=== PATIENT | female | born 1965 | race Caucasian/White ===

== ENCOUNTER 2022-01-18 13:08 | Emergency (ER) | payer MEDICAID ==
[~2022-01-18] VITALS: Ht 165.1 cm; Wt 63.6 kg
[~2022-01-18 13:08] MED LIST: ASPI-1264 PO
[2022-01-18 14:23] LABS: URINE HCG NEGATIVE (NEG)
[2022-01-18 14:26] LABS: CLARITY,URINE SLIGHTLY CLOUDY (Clear); COLOR,URINE YELLOW (Yellow); GLUCOSE, URINE NEGATIVE (Neg); KETONES,URINE NEGATIVE (Neg); LEUKOCYTE ESTERASE ,URINE SMALL (Neg); NITRITES, URINE NEGATIVE (Neg); OCCULT BLOOD,URINE SMALL (Neg); PH,URINE 5.5 (4.8-8.0); PROTEIN,URINE NEGATIVE (Neg); UROBILINOGEN,URINE 0.2 E.U/dL (0.2-1.0)
[2022-01-18 14:26] LABS: BASOPHILS # (AUTO) 0.1 X10'3 (0-0.2); BASOPHILS % (AUTO) 0.6 % (0-1); EOSINOPHILS # (AUTO) 0.1 X10'3 (0-0.9); EOSINOPHILS % (AUTO) 1.4 % (0-6); HEMATOCRIT 44.1 % (35.0-45.0); HEMOGLOBIN 15.3 g/dl (12.0-16.0); LYMPHOCYTES # (AUTO) 2.3 X10'3 (1.1-4.8); MEAN CORPUSCULAR HEMOGLOBIN 30.2 PG (27.0-31.0); MEAN CORPUSCULAR HGB CONC 34.6 g/dL (33.0-36.5); MEAN CORPUSCULAR VOLUME 87.3 FL (78-98); MEAN PLATELET VOLUME 9.1 FL (7.4-10.4); MONOCYTES # (AUTO) 0.6 X10'3 (0-0.9); MONOCYTES % (AUTO) 5.4 % (2-12); NEUTROPHILS # (AUTO) 7.3 X10'3 (1.8-7.7); NEUTROPHILS % (AUTO) 70.6 % (42-75); PLATELET COUNT 259 X10'3 (140-440); RED BLOOD COUNT 5.06 X10'6 (4.20-5.60); RED CELL DISTRIBUTION WIDTH 12.3 % (11.5-14.5); WHITE BLOOD COUNT 10.3 X10'3 (4.5-11.0)
[2022-01-18 14:30] LABS: UA COLLECTION TYPE CLN CATCH MIDSTREAM
[2022-01-18 14:30] LABS: ALANINE AMINOTRANSFERASE 35 U/L (12-78); ALBUMIN 4.2 G/DL (3.4-5.0); ALBUMIN/GLOBULIN RATIO 1.2 (1.1-1.5); ALKALINE PHOSPHATASE 65 IU/L (46-116); ANION GAP 8 (8-16); ASPARTATE AMINO TRANSFERASE 22 U/L (10-37); BILIRUBIN,TOTAL 1.4 MG/DL (0.1-1.0); BLOOD UREA NITROGEN 13 MG/DL (7-18); BUN/CREATININE RATIO 12.1 (6.6-38.0); CALCIUM 9.1 MG/DL (8.5-10.1); CHLORIDE 105 MMOL/L (99-107); CREATININE 1.07 MG/DL (0.40-0.90); GLUCOSE 133 MG/DL (70-104); LIPASE 97 U/L (73-393); POTASSIUM 3.9 MMOL/L (3.5-5.1); SODIUM 142 MMOL/L (135-145); TOTAL CARBON DIOXIDE 29.1 MMOL/L (24-32); TOTAL PROTEIN 7.6 G/DL (6.4-8.2); eGFR 53 ML/MIN
[2022-01-18 14:31] LABS: HYALINE CASTS 0-3 /LPF (NEGATIVE); MUCUS STRANDS MODERATE /LPF (Neg)
[2022-01-18 14:32] LABS: BACTERIA,URINE FEW /HPF (Neg); RBC,URINE 0-2 /HPF (0-2); TRANSITIONAL EPI CELLS,URINE FEW /HPF; WBC,URINE 0-4 /HPF (0-4)
[2022-01-18 14:33] LABS: SQUAMOUS EPITHELIAL CELL,UR MANY /LPF (FEW)
[2022-01-18] MEDS ORDERED: normal saline 1000ML IV soln IVB ONE (16:05)
[2022-01-18] MEDS ORDERED: ketorolac tromethamine 15mg/ml inj. IV ONE (16:05)
[2022-01-18] MEDS ORDERED: morphine 4 MG/ML inj SYRINge IV ONE (17:50)
[2022-01-18] MEDS ORDERED: ondansetron/PF 4mg/2ml inj IV ONE (17:55)
[2022-01-18] MEDS ORDERED: CEPH250T PO (18:39)
[2022-01-18] MEDS ORDERED: cephalexin 250mg capsule PO ONE (18:45)
[2022-01-18 19:13] VITALS: BP 119/76
== END 2022-01-18 19:14 | disposition home or self-care (01) ==
LOC: ER 13:09
DX: N39.0 Urinary tract infection, site not specified (principal); R10.84 Generalized abdominal pain; R30.0 Dysuria; Z95.0 Presence of cardiac pacemaker; Z88.6 Allergy status to analgesic agent; Z91.040 Latex allergy status; Z88.8 Allergy status to other drugs, medicaments and biological substances; Z79.82 Long term (current) use of aspirin; Z79.2 Long term (current) use of antibiotics
CPT/HCPCS: 36415; 74176; 80053; 81001; 81025; 83690; 85025; 96374; 96375; 99284; J1885; J2270; J2405; J7030; A6449

== ENCOUNTER 2023-11-26 17:16 | Emergency (ER) | payer MEDICAID ==
[~2023-11-26] VITALS: Ht 165.1 cm; Wt 66.4 kg
[2023-11-26 17:19] VITALS: BP 151/88; PULSE 79; TEMP 97.4; O2SAT 97
[2023-11-26] MEDS ORDERED: SULF1TAB49 PO (18:10)
[2023-11-26] MEDS ORDERED: CEPH-585 PO (18:10)
[2023-11-26] MEDS ORDERED: NAPR-56 PO (18:10)
[2023-11-26] MEDS: TETanus/Pertussis (Acell)/Diphther VAC/PF (Tdap-Adult) 0.5ml syringe IMVAC ONE (18:20)
[2023-11-26 19:36] VITALS: RESP 16
== END 2023-11-26 19:36 | disposition home or self-care (01) ==
LOC: ER 17:16
DX: S61.431A Puncture wound without foreign body of right hand, initial encounter (principal); Z88.8 Allergy status to other drugs, medicaments and biological substances; Z88.6 Allergy status to analgesic agent; Z91.040 Latex allergy status; Z79.82 Long term (current) use of aspirin; Z79.2 Long term (current) use of antibiotics; W19.XXXA Unspecified fall, initial encounter; Y93.89 Activity, other specified; Y92.89 Other specified places as the place of occurrence of the external cause; Y99.8 Other external cause status
CPT/HCPCS: 73110; 90471; 90715; 99284